=== PATIENT | female | born 1935 | race Caucasian/White ===

== ENCOUNTER 2018-01-22 11:49 | Emergency (ER) | payer BC ==
[~2018-01-22] VITALS: Ht 167.6 cm; Wt 78.5 kg
[~2018-01-22 11:49] MED LIST changes: -ADACEL; -AMLO5 PO; -DABI150C; -LOSARTAN POTAS100 MG PO
== END 2018-01-22 13:19 | disposition home or self-care (01) ==
LOC: ER 11:49
DX: I48.0 Paroxysmal atrial fibrillation (principal); I44.7 Left bundle-branch block, unspecified; Z86.19 Personal history of other infectious and parasitic diseases; Z88.1 Allergy status to other antibiotic agents; Z88.5 Allergy status to narcotic agent; Z79.899 Other long term (current) drug therapy
CPT/HCPCS: 93005; 93010; 99284

== ENCOUNTER → 2018-01-22 | Outpatient (CLI) | payer BC ==
[~2018-01-22] MED LIST: ADACEL; ALEN70 PO; AMLO5 PO; ASPI81EC PO; ATEN25 PO; CALCAVITD PO; CHOL10002 PO; CIPR500 PO; CYAN100 PO; CYAN1000 PO; DABI150C; DOXY100 PO; ERGO400 PO; FISH1000 PO; GLUC500 PO; GLUCHON PO; LOSARTAN POTAS100 MG PO; MAGOXI400 PO; METO10 PO; NAPR500 PO; OXYACE5T PO; PRAV20 PO; UBID10 PO; [UNRECOGNIZED DRUG - OTHER]
[2018-01-22 11:31] LABS: BASOPHILS ABSOLUTE AUTO 0.04 K/mm3 (0.00-0.23); BASOPHILS PERCENT AUTO 1 % (0-2); EOSINOPHILS ABSOLUTE AUTO 0.06 K/mm3 (0.00-0.68); EOSINOPHILS PERCENT AUTO 1 % (0-6); Hematocrit 41.2 % (33.0-51.0); Hemoglobin 13.9 g/dL (11.5-16.0); IMMATURE GRAN ABSOLUTE AUTO 0.04 K/mm3 (0.00-0.10); IMMATURE GRAN PERCENT AUTO 1 % (0-1); LYMPHOCYTES ABSOLUTE AUTO 1.45 K/mm3 (0.84-5.20); LYMPHOCYTES PERCENT AUTO 22 % (21-46); MONOCYTES ABSOLUTE AUTO 0.79 K/mm3 (0.16-1.47); MONOCYTES PERCENT AUTO 12 % (4-13); Mean Corpuscular HGB 31.6 pg (26.0-34.0); Mean Corpuscular HGB Conc 33.7 g/dL (31.5-36.5); Mean Corpuscular Volume 94 fL (80-100); NEUTROPHILS ABSOLUTE AUTO 4.15 K/mm3 (1.96-9.15); NEUTROPHILS PERCENT AUTO 64 % (41-73); Platelet Count 311 K/mm3 (150-400); RDW Coefficient Variation 13.5 % (11.7-14.2); RDW Standard Deviation 46.3 fL (35.1-46.3); White Blood Cell Count 6.53 K/mm3 (4.00-11.30)
[2018-01-22 11:53] LABS: Alanine Aminotransfer (ALT/SGP 19 U/L (12-78); Albumin, Blood 3.7 g/dL (3.4-5.0); Albumin/Globulin Ratio 0.9 (0.8-1.8); Alk Phos 53 U/L (40-126); Anion Gap 8 mmol/L (6-16); Aspartate Aminotrans (AST/SGOT 17 U/L (12-37); Bilirubin, Total 0.5 mg/dL (0.1-1.0); Blood Urea Nitrogen 13 mg/dL (8-24); Bun/Creatinine Ratio 21.7 (12.0-20.0); CO2, Blood 27 mmol/L (21-32); CPK Creatine Kinase 65 U/L (26-192); Calcium, Blood 9.5 mg/dL (8.5-10.1); Chloride, Blood 103 mmol/L (98-108); Glomerular Filtration Rate >60 (60-); Glucose, Blood 114 mg/dL (70-99); Sodium, Blood 138 mmol/L (136-145); Thyroid Stimulating Hormone 2.713 uIU/mL (0.360-4.800); Total Protein, Blood 7.7 g/dL (6.4-8.2)
[2018-01-22 11:56] LABS: Troponin I <0.017 ng/mL (0.000-0.040)
== END ==
LOC: LAB EV 11:26
PROVIDERS: General Practice
DX: R07.9 Chest pain, unspecified (principal)
CPT/HCPCS: 80053; 82550; 84443; 84484; 85025

== ENCOUNTER 2018-05-15 18:37 | Emergency (ER) | payer MEDICARE, BC ==
[~2018-05-15] VITALS: Ht 167.6 cm; Wt 77.1 kg
[2018-05-15] MEDS ORDERED: ADACEL (19:01)
[2018-05-15] MEDS ORDERED: DABI150C (19:01)
[2018-05-15] MEDS ORDERED: ALEN70 PO (19:02)
[2018-05-15] MEDS ORDERED: AMLO5 PO (19:02)
[2018-05-15] MEDS ORDERED: LOSARTAN POTAS100 MG PO (19:02)
[2018-05-15 19:09] LABS: BASOPHILS ABSOLUTE AUTO 0.05 K/mm3 (0.00-0.23); BASOPHILS PERCENT AUTO 1 % (0-2); EOSINOPHILS ABSOLUTE AUTO 0.07 K/mm3 (0.00-0.68); EOSINOPHILS PERCENT AUTO 1 % (0-6); Hemoglobin 14.1 g/dL (11.5-16.0); IMMATURE GRAN ABSOLUTE AUTO 0.03 K/mm3 (0.00-0.10); IMMATURE GRAN PERCENT AUTO 0 % (0-1); LYMPHOCYTES PERCENT AUTO 33 % (21-46); MONOCYTES ABSOLUTE AUTO 1.01 K/mm3 (0.16-1.47); MONOCYTES PERCENT AUTO 12 % (4-13); Mean Corpuscular HGB 30.8 pg (26.0-34.0); Mean Corpuscular HGB Conc 32.8 g/dL (31.5-36.5); Mean Corpuscular Volume 94 fL (80-100); Mean Platelet Volume 9.2 fL (9.1-12.4); NEUTROPHILS ABSOLUTE AUTO 4.45 K/mm3 (1.96-9.15); NEUTROPHILS PERCENT AUTO 54 % (41-73); Platelet Count 289 K/mm3 (150-400); RDW Coefficient Variation 12.8 % (11.7-14.2); RDW Standard Deviation 44.1 fL (35.1-46.3); Red Blood Cell Count 4.58 M/mm3 (3.80-5.20); White Blood Cell Count 8.31 K/mm3 (4.00-11.30)
[2018-05-15 20:12] LABS: Alanine Aminotransfer (ALT/SGP 17 U/L (12-78); Albumin, Blood 3.6 g/dL (3.4-5.0); Alk Phos 45 U/L (50-136); Anion Gap 7 mmol/L (6-16); Aspartate Aminotrans (AST/SGOT 21 U/L (12-37); Bilirubin, Total 0.3 mg/dL (0.1-1.0); Blood Urea Nitrogen 19 mg/dL (8-24); Bun/Creatinine Ratio 29.9 (12.0-20.0); CO2, Blood 24 mmol/L (21-32); Calcium, Blood 9.2 mg/dL (8.5-10.1); Chloride, Blood 106 mmol/L (98-108); Creatinine, Blood 0.64 mg/dL (0.40-1.00); Globulin, Blood 3.7 g/dL (2.2-4.0); Glomerular Filtration Rate >60 (60-); Glucose, Blood 116 mg/dL (70-99); Potassium, Blood 3.9 mmol/L (3.5-5.5); Sodium, Blood 137 mmol/L (136-145); Total Protein, Blood 7.3 g/dL (6.4-8.2); Troponin I <0.015 ng/mL (0.000-0.040)
== END 2018-05-15 23:25 | disposition home or self-care (01) ==
LOC: ER 18:37
PROVIDERS: Emergency Medicine
DX: I48.91 Unspecified atrial fibrillation (principal); I48.92 Unspecified atrial flutter; I10 Essential (primary) hypertension; E78.00 Pure hypercholesterolemia, unspecified; Z79.899 Other long term (current) drug therapy
CPT/HCPCS: 36415; 80053; 83735; 84443; 84484; 85025; 92960; 93005; 93010; 96365; 96375; 99285; J3475; J7030

== ENCOUNTER → 2019-01-22 | Outpatient (CLI) | payer BC ==
[~2019-01-22] MED LIST changes: +ADACEL; +AMLO5 PO; +DABI150C; +LOSARTAN POTAS100 MG PO
[2019-01-22 14:23] LABS: BASOPHILS ABSOLUTE AUTO 0.01 K/mm3 (0.00-0.23); BASOPHILS PERCENT AUTO 0 % (0-2); EOSINOPHILS PERCENT AUTO 0 % (0-6); Hematocrit 42.4 % (33.0-51.0); Hemoglobin 14.6 g/dL (11.5-16.0); Mean Corpuscular HGB 32.4 pg (26.0-34.0); Mean Corpuscular HGB Conc 34.4 g/dL (31.5-36.5); Mean Corpuscular Volume 94 fL (80-100); Mean Platelet Volume 8.1 fL (9.1-12.4); Platelet Count 274 K/mm3 (150-400); RDW Coefficient Variation 12.7 % (11.7-14.2); RDW Standard Deviation 43.8 fL (35.1-46.3); Red Blood Cell Count 4.51 M/mm3 (3.80-5.20); White Blood Cell Count 8.11 K/mm3 (4.00-11.30)
[2019-01-22 14:28] LABS: Anion Gap 11 mmol/L (6-16); Blood Urea Nitrogen 10 mg/dL (8-24); Bun/Creatinine Ratio 13.7 (12.0-20.0); CO2, Blood 25 mmol/L (21-32); Calcium, Blood 9.5 mg/dL (8.5-10.1); Chloride, Blood 92 mmol/L (98-108); Creatinine, Blood 0.73 mg/dL (0.40-1.00); Glomerular Filtration Rate >60 (60-); Glucose, Blood 133 mg/dL (70-99); Potassium, Blood 4.3 mmol/L (3.5-5.5); Sodium, Blood 128 mmol/L (136-145)
[2019-01-22 14:37] LABS: IMMATURE GRAN ABSOLUTE AUTO 0.04 K/mm3 (0.00-0.10); IMMATURE GRAN PERCENT AUTO 1 % (0-1); LYMPHOCYTES ABSOLUTE AUTO 1.09 K/mm3 (0.84-5.20); LYMPHOCYTES PERCENT AUTO 13 % (21-46); MONOCYTES ABSOLUTE AUTO 0.46 K/mm3 (0.16-1.47); MONOCYTES PERCENT AUTO 6 % (4-13); NEUTROPHILS ABSOLUTE AUTO 6.51 K/mm3 (1.96-9.15); NEUTROPHILS PERCENT AUTO 80 % (41-73)
== END | disposition home or self-care (01) ==
LOC: LAB EV 14:18 → LAB SHORT 14:18
PROVIDERS: Physician Assistant Surgical
DX: R05 Cough (principal)
CPT/HCPCS: 80048; 83880; 85025

== ENCOUNTER 2019-10-12 15:11 | Emergency (ER) | payer BC ==
[~2019-10-12] VITALS: Ht 167.6 cm; Wt 77.1 kg
== END 2019-10-12 17:16 | disposition home or self-care (01) ==
LOC: ER 15:11
DX: I48.91 Unspecified atrial fibrillation (principal); Z86.73 Personal history of transient ischemic attack (TIA), and cerebral infarction without residual deficits; Z79.01 Long term (current) use of anticoagulants; Z88.1 Allergy status to other antibiotic agents; Z88.5 Allergy status to narcotic agent; Z79.899 Other long term (current) drug therapy
CPT/HCPCS: 36415; 71045; 92960; 99285-25; J2704

== ENCOUNTER 2019-10-14 10:38 | Inpatient (IN) | payer MEDICARE, BC ==
[~2019-10-14] VITALS: Ht 167.6 cm; Wt 81.1 kg
[2019-10-14 11:33] LABS: BASOPHILS ABSOLUTE AUTO 0.04 K/mm3 (0.00-0.23); BASOPHILS PERCENT AUTO 0 % (0-2); EOSINOPHILS ABSOLUTE AUTO 0.05 K/mm3 (0.00-0.68); EOSINOPHILS PERCENT AUTO 1 % (0-6); Hematocrit 40.1 % (33.0-51.0); Hemoglobin 13.2 g/dL (11.5-16.0); IMMATURE GRAN ABSOLUTE AUTO 0.03 K/mm3 (0.00-0.10); IMMATURE GRAN PERCENT AUTO 0 % (0-1); LYMPHOCYTES ABSOLUTE AUTO 1.02 K/mm3 (0.84-5.20); LYMPHOCYTES PERCENT AUTO 11 % (21-46); MONOCYTES ABSOLUTE AUTO 1.22 K/mm3 (0.16-1.47); MONOCYTES PERCENT AUTO 13 % (4-13); Mean Corpuscular HGB 31.4 pg (26.0-34.0); Mean Corpuscular HGB Conc 32.9 g/dL (31.5-36.5); Mean Corpuscular Volume 96 fL (80-100); Mean Platelet Volume 8.9 fL (9.1-12.4); NEUTROPHILS ABSOLUTE AUTO 6.79 K/mm3 (1.96-9.15); NEUTROPHILS PERCENT AUTO 74 % (41-73); Platelet Count 314 K/mm3 (150-400); RDW Coefficient Variation 12.9 % (11.7-14.2); RDW Standard Deviation 45.5 fL (35.1-46.3); White Blood Cell Count 9.15 K/mm3 (4.00-11.30)
[2019-10-14 11:54] LABS: Alanine Aminotransfer (ALT/SGP 22 U/L (12-78); Albumin, Blood 3.4 g/dL (3.4-5.0); Albumin/Globulin Ratio 0.8 (0.8-1.8); Alk Phos 69 U/L (50-136); Anion Gap 9 mmol/L (6-16); Aspartate Aminotrans (AST/SGOT 17 U/L (12-37); Bilirubin, Total 0.6 mg/dL (0.1-1.0); Blood Urea Nitrogen 12 mg/dL (8-24); Bun/Creatinine Ratio 19.9 (12.0-20.0); CO2, Blood 22 mmol/L (21-32); Calcium, Blood 9.2 mg/dL (8.5-10.1); Chloride, Blood 105 mmol/L (98-108); Globulin, Blood 4.4 g/dL (2.2-4.0); Glomerular Filtration Rate >60 (60-); Glucose, Blood 126 mg/dL (70-99); Sodium, Blood 136 mmol/L (136-145); Total Protein, Blood 7.8 g/dL (6.4-8.2)
[2019-10-14] MEDS ORDERED: DABI150C PO (12:07)
[2019-10-14] MEDS ORDERED: METO25 PO (12:07)
[2019-10-14] MEDS ORDERED: AMLO10 PO (12:09)
[2019-10-14] MEDS ORDERED: ATOR40TA PO (12:09)
[2019-10-14] MEDS ORDERED: ALEN70 PO (13:31)
--- NOTE | 2019-10-14 16:00 | NUR ---
INITIAL ASSESMENT PT ADMITTED FROM ED FOR AF RVR WHICH WAS CONTROLLED TO THE 110S AND TRANSFERED TO PCU3 VIA STRETCHER AND AMBULATED TO BED AND BATHROOM WITHOUT DIFFICULTY, VERTIGO OR DIZINESS. AF IN THE 110-170S WHEN AMBULATING, MD ADVISED. NO ORDERS RECEIVED. PALP PULSES, NO EDEMA, GOOD CAP REFILL, NO C/O CP OR SOB. RA SATS IN THE HIGH 90S. SBP STABLE. SL. CARDIAC DIET WITH GOOD PO INTAKE. UO ADEQUATE CLEAR AND YELLOW. SKIN INTACT. WILL CONT TO MONITOR
--- NOTE | 2019-10-14 19:30 | NUR ---
OPENING NOTE RECEIVED REPORT FROM MONIE MARTINEZ AND ASSUMED PT CARE. PT IS RESTING IN BED, C/O FEELING SHORTNESS OF BREATH. TELE IS SHOWING AFIB UP TO 170'S WITH ACTIVITY AND 130'S AT REST. OTHER VITAL SIGNS STABLE. DR. MÁRQUEZ AT THE BEDSIDE FOR ADMISSION WITH PLAN TO START A CARDIZEM GTT. WILL INITIATE ADMIT ORDERS WHEN ENTERED AND WILL MONITOR CLOSELY FOR DECOMPENSATION.
[2019-10-15 05:38] LABS: BASOPHILS ABSOLUTE AUTO 0.06 K/mm3 (0.00-0.23); BASOPHILS PERCENT AUTO 1 % (0-2); EOSINOPHILS ABSOLUTE AUTO 0.21 K/mm3 (0.00-0.68); EOSINOPHILS PERCENT AUTO 3 % (0-6); Hematocrit 38.9 % (33.0-51.0); Hemoglobin 12.5 g/dL (11.5-16.0); IMMATURE GRAN ABSOLUTE AUTO 0.03 K/mm3 (0.00-0.10); IMMATURE GRAN PERCENT AUTO 0 % (0-1); LYMPHOCYTES ABSOLUTE AUTO 1.74 K/mm3 (0.84-5.20); LYMPHOCYTES PERCENT AUTO 24 % (21-46); MONOCYTES ABSOLUTE AUTO 1.17 K/mm3 (0.16-1.47); MONOCYTES PERCENT AUTO 16 % (4-13); Mean Corpuscular HGB 31.3 pg (26.0-34.0); Mean Corpuscular HGB Conc 32.1 g/dL (31.5-36.5); Mean Corpuscular Volume 97 fL (80-100); Mean Platelet Volume 9.6 fL (9.1-12.4); NEUTROPHILS ABSOLUTE AUTO 4.04 K/mm3 (1.96-9.15); NEUTROPHILS PERCENT AUTO 56 % (41-73); Platelet Count 280 K/mm3 (150-400); RDW Coefficient Variation 12.9 % (11.7-14.2); RDW Standard Deviation 46.1 fL (35.1-46.3); White Blood Cell Count 7.25 K/mm3 (4.00-11.30)
[2019-10-15 05:59] LABS: Alanine Aminotransfer (ALT/SGP 18 U/L (12-78); Albumin/Globulin Ratio 0.8 (0.8-1.8); Alk Phos 62 U/L (50-136); Anion Gap 8 mmol/L (6-16); Aspartate Aminotrans (AST/SGOT 22 U/L (12-37); Bilirubin, Total 0.8 mg/dL (0.1-1.0); Blood Urea Nitrogen 11 mg/dL (8-24); Bun/Creatinine Ratio 20.7 (12.0-20.0); CO2, Blood 21 mmol/L (21-32); Calcium, Blood 8.9 mg/dL (8.5-10.1); Chloride, Blood 106 mmol/L (98-108); Creatinine, Blood 0.53 mg/dL (0.40-1.00); Glomerular Filtration Rate >60 (60-); Glucose, Blood 100 mg/dL (70-99); Potassium, Blood 3.8 mmol/L (3.5-5.5); Sodium, Blood 135 mmol/L (136-145)
[2019-10-15 06:03] LABS: Troponin I <0.015 ng/mL (0.000-0.040)
--- NOTE | 2019-10-15 06:24 | NUR ---
SHIFT SUMMARY PT HAS NOT RESTED WELL THROUGH THE NIGHT, STATES "I'M JUST NOT ABLE TO GET COMFORTABLE BECAUSE I USUALLY SLEEP ON MY SIDE AND I DON'T FEEL LIKE I CAN DO THAT WITH MY BREATHING". OVERALL SOME IMPROVEMENT R/T BETTER HR CONTROL WITH CARDIZEM GTT RUNNING AT 5 MG/HR FOR HR 90'S AT REST AND UP TO 130'S WITH ACTIVITY. PT STATES "I FEEL BETTER BUT I'M REALLY DISAPPOINTED THAT IT DIDN'T CHANGE TO A NORMAL RHYTHM". DENIES PAIN OR OTHER COMPLAINTS THIS MORNING, APPEARS RELAXED AND COMFORTABLE. VSS, SEE ASSESSMENT FOR DETAILS. LUNG SOUNDS ARE CLEAR T/O AND SATS ARE >94% ON ROOM AIR SO PROVIDED EDUCATION R/T RAPID HR AND SENSATION OF SHORTNESS OF BREATH. NO ACUTE CONCERNS THIS AM, PLAN FOR CARDIOLOGY CONSULT TODAY. WILL PROVIDE BEDSIDE REPORT TO ONCOMING RN.
--- NOTE | 2019-10-15 09:09 | NUR ---
PULSE RATE 120-130 WITH PEAKS OF 150, DISCUSSED WITH CN INCREASED TO 10 WILL CONTINUE MONITOR AND TREAT
--- NOTE | 2019-10-15 19:21 | NUR ---
a+o, rm air, drip running with no s/sx of infection or infiltration at site, call light in reach, able to make needs known, afib heart rate increasing, waiting on new medication, bsr shared with pt and day shift denied pain at that time
--- NOTE | 2019-10-16 01:30 | NUR ---
CARDIZEM D/C'D AFTER PT CONVERTED TO NSR, MAINTAINED RHYTHM FOR 1HR IN THE 70'S/80'S. HR THEN DROPPED INTO 50'S AND SUSTAINED, BUT PT IS ASYMPTOMATIC AT THIS TIME. PT TOLERATED WELL. DENIES FURTHER NEEDS AT THIS TIME. SAFETY MEASURES IN PLACE. WILL CONTINUE TO MONITOR.
--- NOTE | 2019-10-16 05:55 | NUR ---
SHIFT SUMMARY LYING IN SEMI FOWLERS WITH EYES CLOSED. HAS RESTED WELL THIS SHIFT. ZACK WAS D/C'S WHEN PT HAD MAINTAINED CONVERSIO FOR AN HOUR, AND HR BEGAN TO DECELL INTO THE 50'S. STATES THAT SHE FEELS MUCH BETTER AND IS VERY HAPPY THAT HER HEART HAS CONVERTED. DENIES PAIN, DISCOMFORT, OR FURTHER NEEDS AT THIS TIME. WILL GIVE HAND OFF TO ONCOMING SHIFT USING SBAR.
[2019-10-16] MEDS ORDERED: ACET325 PO (12:22)
[2019-10-16] MEDS ORDERED: SOTO80 PO (12:23)
--- NOTE | 2019-10-16 16:43 | NUR ---
CALLED DR MÁRQUEZ PT C/O INCREASED SOB AT REST. NOTIFIED THAT PT'S LUNGS ARE CLEAR TO ASCULATION, SINUS RHYTHM 70'S AND VITALS STABLE. PT REMAINS ON ROOM AIR. ORDERS RECEIVED FOR XRAY. WILL CONTINUE TO MONITOR AND UPDATE PT.
--- NOTE | 2019-10-16 19:23 | NUR ---
SHIFT SUMMARY PT HAS REMAINED IN SINUS RHYTHM THROUGHOUT SHIFT. THIS AFTERNOON PT C/O INCREASED SOB WHILE AT REST. NOTIFIED DR MÁRQUEZ AND ORDERS RECEIVED. PT FELT THAT THE SOB HAD IMPROVED THIS EVENING. PT HAS BEEN UP IN ROOM WITH SBA.
--- NOTE | 2019-10-16 22:11 | NUR ---
START OF SHIFT: REPORT FORM LARON MARTINEZ. PT UP IN ROOM PLEASANT INDEPENDENTLY WITHOUT ANY DIFFICULTY OR COMPLAINTS. VSS. QTc 0.480, Qt 0.384 AT 2118. CALL LIGHT WITHIN REACH.
--- NOTE | 2019-10-17 06:10 | NUR ---
UPDATE: PT UP THIS AM STATING SHE IS FEELING SO MUCH BETTER AND HAS HAD THE BEST SLEEP. VSS. PT CONTINUING UP INDEPENDENT IN ROOM WITHOUT DIFFICULTY. CALL LIGHT WITHIN REACH.
[2019-10-17 08:29] LABS: BASOPHILS ABSOLUTE AUTO 0.04 K/mm3 (0.00-0.23); BASOPHILS PERCENT AUTO 1 % (0-2); EOSINOPHILS PERCENT AUTO 3 % (0-6); Hemoglobin 13.3 g/dL (11.5-16.0); IMMATURE GRAN ABSOLUTE AUTO 0.03 K/mm3 (0.00-0.10); IMMATURE GRAN PERCENT AUTO 1 % (0-1); LYMPHOCYTES ABSOLUTE AUTO 1.09 K/mm3 (0.84-5.20); LYMPHOCYTES PERCENT AUTO 17 % (21-46); MONOCYTES ABSOLUTE AUTO 1.01 K/mm3 (0.16-1.47); MONOCYTES PERCENT AUTO 16 % (4-13); Mean Corpuscular HGB Conc 32.4 g/dL (31.5-36.5); Mean Corpuscular Volume 96 fL (80-100); Mean Platelet Volume 8.6 fL (9.1-12.4); NEUTROPHILS ABSOLUTE AUTO 4.15 K/mm3 (1.96-9.15); NEUTROPHILS PERCENT AUTO 64 % (41-73); Platelet Count 341 K/mm3 (150-400); RDW Coefficient Variation 12.9 % (11.7-14.2); RDW Standard Deviation 45.2 fL (35.1-46.3); Red Blood Cell Count 4.29 M/mm3 (3.80-5.20); White Blood Cell Count 6.52 K/mm3 (4.00-11.30)
[2019-10-17 09:13] LABS: Anion Gap 7 mmol/L (6-16); Blood Urea Nitrogen 12 mg/dL (8-24); Bun/Creatinine Ratio 24.1 (12.0-20.0); CO2, Blood 21 mmol/L (21-32); Calcium, Blood 9.2 mg/dL (8.5-10.1); Chloride, Blood 104 mmol/L (98-108); Glomerular Filtration Rate >60 (60-); Glucose, Blood 145 mg/dL (70-99); Potassium, Blood 4.3 mmol/L (3.5-5.5); Sodium, Blood 132 mmol/L (136-145)
--- NOTE | 2019-10-17 14:23 | NUR ---
PT PROVIDED WITH HER HOME MEDS AND ALL BELONGINGS. PT EDUCATED ABOUT NEW MEDICATIONS AND SIDE EFFECTS, PT EDUCATED THAT RX WAS CALLED INTO [facility]. PT EXPRESSED UNDERSTANDIG OF DC EDUCATION, DENIES FURTHER NEEDS OR QUESTIONS. PT TAKEN OUT VIA W/C VIA PCT
== END 2019-10-17 14:22 | disposition home or self-care (01) | DRG 310 ==
LOC: ER 10:38 → PCU 14:48
PROVIDERS: Emergency Medicine; Family Medicine; ADMIT Internal Medicine Endocrinology, Diabetes & Metabolism
DX: I48.0 Paroxysmal atrial fibrillation (principal); I44.7 Left bundle-branch block, unspecified; E78.5 Hyperlipidemia, unspecified; B18.2 Chronic viral hepatitis C; F41.9 Anxiety disorder, unspecified; Z79.01 Long term (current) use of anticoagulants; Z86.73 Personal history of transient ischemic attack (TIA), and cerebral infarction without residual deficits
CPT/HCPCS: 36415; 71046; 80048; 80053; 83735; 83880; 84484; 85025; 93005; 93010; 94762; 96374; 96375; 99285-25; A9270; J1940

== ENCOUNTER 2019-10-19 18:16 | Emergency (ER) | payer BC ==
[~2019-10-19] VITALS: Ht 167.6 cm; Wt 80.3 kg
[~2019-10-19 18:16] MED LIST changes: +ACET325 PO; +AMLO10 PO; +ATOR40TA PO; +DABI150C PO; +METO25 PO; +SOTO80 PO
[2019-10-19 19:05] LABS: BASOPHILS ABSOLUTE AUTO 0.08 K/mm3 (0.00-0.23); BASOPHILS PERCENT AUTO 1 % (0-2); EOSINOPHILS ABSOLUTE AUTO 0.12 K/mm3 (0.00-0.68); EOSINOPHILS PERCENT AUTO 2 % (0-6); Hematocrit 43.3 % (33.0-51.0); Hemoglobin 14.3 g/dL (11.5-16.0); IMMATURE GRAN ABSOLUTE AUTO 0.06 K/mm3 (0.00-0.10); IMMATURE GRAN PERCENT AUTO 1 % (0-1); LYMPHOCYTES ABSOLUTE AUTO 1.77 K/mm3 (0.84-5.20); LYMPHOCYTES PERCENT AUTO 22 % (21-46); MONOCYTES ABSOLUTE AUTO 0.93 K/mm3 (0.16-1.47); MONOCYTES PERCENT AUTO 11 % (4-13); Mean Corpuscular HGB 31.6 pg (26.0-34.0); Mean Corpuscular Volume 96 fL (80-100); Mean Platelet Volume 8.4 fL (9.1-12.4); NEUTROPHILS ABSOLUTE AUTO 5.27 K/mm3 (1.96-9.15); NEUTROPHILS PERCENT AUTO 64 % (41-73); Platelet Count 427 K/mm3 (150-400); RDW Coefficient Variation 12.6 % (11.7-14.2); RDW Standard Deviation 44.7 fL (35.1-46.3); Red Blood Cell Count 4.53 M/mm3 (3.80-5.20); White Blood Cell Count 8.23 K/mm3 (4.00-11.30)
[2019-10-19 19:21] LABS: Alanine Aminotransfer (ALT/SGP 23 U/L (12-78); Albumin, Blood 3.7 g/dL (3.4-5.0); Albumin/Globulin Ratio 0.8 (0.8-1.8); Alk Phos 71 U/L (50-136); Anion Gap 6 mmol/L (6-16); Aspartate Aminotrans (AST/SGOT 20 U/L (12-37); Bilirubin, Total 0.3 mg/dL (0.1-1.0); Blood Urea Nitrogen 16 mg/dL (8-24); Bun/Creatinine Ratio 28.1 (12.0-20.0); CO2, Blood 22 mmol/L (21-32); Calcium, Blood 9.5 mg/dL (8.5-10.1); Chloride, Blood 101 mmol/L (98-108); Creatinine, Blood 0.57 mg/dL (0.40-1.00); Globulin, Blood 4.6 g/dL (2.2-4.0); Glomerular Filtration Rate >60 (60-); Glucose, Blood 132 mg/dL (70-99); Potassium, Blood 4.3 mmol/L (3.5-5.5); Sodium, Blood 129 mmol/L (136-145); Total Protein, Blood 8.3 g/dL (6.4-8.2); Troponin I <0.015 ng/mL (0.000-0.040)
== END 2019-10-19 21:30 | disposition home or self-care (01) ==
LOC: ER 18:16
PROVIDERS: Physician Assistant
DX: I48.91 Unspecified atrial fibrillation (principal); J81.1 Chronic pulmonary edema; E78.5 Hyperlipidemia, unspecified; Z88.1 Allergy status to other antibiotic agents; Z88.5 Allergy status to narcotic agent; Z79.899 Other long term (current) drug therapy; Z86.73 Personal history of transient ischemic attack (TIA), and cerebral infarction without residual deficits
CPT/HCPCS: 36415; 71046; 80053; 84484; 85025; 93005; 93010; 96374; 99285-25

== ENCOUNTER → 2020-07-10 | Outpatient (CLI) | payer BC ==
[2020-07-11 21:27] LABS: Campylobacter Sp Not Detected (NOT DETECT)
[2020-07-11 21:28] LABS: Adenovirus F 40/41 Not Detected (NOT DETECT); Astrovirus Not Detected (NOT DETECT); Cryptosporidium Not Detected (NOT DETECT); Cyclospora Cayetanensis Not Detected (NOT DETECT); E. Coli O157 Not Detected (NOT DETECT); Entamoeba Histolytica Not Detected (NOT DETECT); Enteroaggregative E. coli-EAEC Not Detected (NOT DETECT); Enteropathogenic E. coli-EPEC Not Detected (NOT DETECT); Enterotoxigenic E. coli-ETEC Not Detected (NOT DETECT); Giardia Lamblia Not Detected (NOT DETECT); Norovirus GI/GII Not Detected (NOT DETECT); Plesiomonas Shigelloides Not Detected (NOT DETECT); Rotavirus A Not Detected (NOT DETECT); Salmonella Sp Not Detected (NOT DETECT); Sapovirus Not Detected (NOT DETECT); Shiga Toxin-prod E. coli-STEC Not Detected (NOT DETECT); Shigella/Enteroin E. coli-EIEC Not Detected (NOT DETECT); Vibrio Cholerae Not Detected (NOT DETECT); Vibrio Sp Not Detected (NOT DETECT); Yersinia Enterocolitica Not Detected (NOT DETECT)
== END | disposition home or self-care (01) ==
LOC: LAB SHORT 19:00 → LAB 19:00
PROVIDERS: Internal Medicine
DX: R19.7 Diarrhea, unspecified (principal)
CPT/HCPCS: 0097U

== ENCOUNTER 2021-10-14 10:20 | Inpatient (IN) | payer MEDICARE, BC ==
[~2021-10-14] VITALS: Ht 167.6 cm; Wt 91.4 kg
[~2021-10-14 10:20] MED LIST changes: +DILTIAZEM 24HR240 M3 PO; +METO100ER PO
[2021-10-14 10:49] LABS: BASOPHILS ABSOLUTE AUTO 0.03 K/mm3 (0.00-0.23); BASOPHILS PERCENT AUTO 0 % (0-2); EOSINOPHILS PERCENT AUTO 0 % (0-6); Hematocrit 39.9 % (33.0-51.0); IMMATURE GRAN ABSOLUTE AUTO 0.07 K/mm3 (0.00-0.10); IMMATURE GRAN PERCENT AUTO 0 % (0-1); LYMPHOCYTES ABSOLUTE AUTO 0.38 K/mm3 (0.84-5.20); LYMPHOCYTES PERCENT AUTO 2 % (21-46); MONOCYTES ABSOLUTE AUTO 1.48 K/mm3 (0.16-1.47); MONOCYTES PERCENT AUTO 9 % (4-13); Mean Corpuscular HGB 31.3 pg (26.0-34.0); Mean Corpuscular HGB Conc 32.6 g/dL (31.5-36.5); Mean Corpuscular Volume 96 fL (80-100); Mean Platelet Volume 8.7 fL (9.1-12.4); NEUTROPHILS PERCENT AUTO 88 % (41-73); Platelet Count 301 K/mm3 (150-400); RDW Coefficient Variation 13.2 % (11.7-14.2); RDW Standard Deviation 46.8 fL (35.1-46.3); Red Blood Cell Count 4.16 M/mm3 (3.80-5.20); White Blood Cell Count 16.16 K/mm3 (4.00-11.30)
[2021-10-14 11:17] LABS: Alanine Aminotransfer (ALT/SGP 25 U/L (12-78); Albumin/Globulin Ratio 0.7 (0.8-1.8); Alk Phos 82 U/L (50-136); Anion Gap 6 mmol/L (6-16); Aspartate Aminotrans (AST/SGOT 16 U/L (12-37); Bilirubin, Total 0.9 mg/dL (0.1-1.0); Blood Urea Nitrogen 13 mg/dL (8-24); Bun/Creatinine Ratio 23.4 (12.0-20.0); CO2, Blood 25 mmol/L (21-32); Chloride, Blood 97 mmol/L (98-108); Creatinine, Blood 0.56 mg/dL (0.40-1.00); Globulin, Blood 4.2 g/dL (2.2-4.0); Glomerular Filtration Rate >60 (60-); Glucose, Blood 147 mg/dL (70-99); Potassium, Blood 4.3 mmol/L (3.5-5.5); Sodium, Blood 128 mmol/L (136-145); Total Protein, Blood 7.2 g/dL (6.4-8.2)
[2021-10-14] MEDS ORDERED: TRAM50 PO (13:30)
[2021-10-14] MEDS ORDERED: ONDA4 (13:31)
[2021-10-14 21:02] LABS: Source, Urine Clean Catch
[2021-10-14 21:06] LABS: Bilirubin, Urine Neg (Neg); Blood, Urine 3+ (Neg); Glucose Qualitative, Urine Neg (Neg); Ketones, Urine 1+ (Neg); Leukocyte Esterase, Urine 1+ (Neg); Nitrite, Urine Neg (Neg); Protein, Urine 1+ (Neg); Urobilinogen, Urine NORM (Normal)
[2021-10-14 21:39] LABS: Appearance, Urine Hazy (Clear); Color, Urine Yellow (P-Yellow)
[2021-10-14 21:42] LABS: Amorphous Mod (0-Heavy); Bacteria Mod /hpf; Squamous Epithelial Cells Mod /hpf (Few)
[2021-10-15 04:33] LABS: BASOPHILS ABSOLUTE AUTO 0.03 K/mm3 (0.00-0.23); BASOPHILS PERCENT AUTO 0 % (0-2); EOSINOPHILS ABSOLUTE AUTO 0.02 K/mm3 (0.00-0.68); EOSINOPHILS PERCENT AUTO 0 % (0-6); Hematocrit 40.8 % (33.0-51.0); Hemoglobin 13.5 g/dL (11.5-16.0); IMMATURE GRAN ABSOLUTE AUTO 0.06 K/mm3 (0.00-0.10); IMMATURE GRAN PERCENT AUTO 1 % (0-1); LYMPHOCYTES ABSOLUTE AUTO 0.74 K/mm3 (0.84-5.20); LYMPHOCYTES PERCENT AUTO 6 % (21-46); MONOCYTES ABSOLUTE AUTO 1.74 K/mm3 (0.16-1.47); MONOCYTES PERCENT AUTO 15 % (4-13); Mean Corpuscular HGB 31.6 pg (26.0-34.0); Mean Corpuscular HGB Conc 33.1 g/dL (31.5-36.5); Mean Corpuscular Volume 96 fL (80-100); Mean Platelet Volume 9.3 fL (9.1-12.4); NEUTROPHILS ABSOLUTE AUTO 9.06 K/mm3 (1.96-9.15); NEUTROPHILS PERCENT AUTO 78 % (41-73); Platelet Count 268 K/mm3 (150-400); RDW Coefficient Variation 13.3 % (11.7-14.2); RDW Standard Deviation 46.8 fL (35.1-46.3); Red Blood Cell Count 4.27 M/mm3 (3.80-5.20); White Blood Cell Count 11.65 K/mm3 (4.00-11.30)
[2021-10-15 04:53] LABS: Alanine Aminotransfer (ALT/SGP 21 U/L (12-78); Albumin/Globulin Ratio 0.7 (0.8-1.8); Alk Phos 82 U/L (50-136); Anion Gap 9 mmol/L (6-16); Aspartate Aminotrans (AST/SGOT 14 U/L (12-37); Bilirubin, Total 0.8 mg/dL (0.1-1.0); Blood Urea Nitrogen 12 mg/dL (8-24); Bun/Creatinine Ratio 26.1 (12.0-20.0); CO2, Blood 24 mmol/L (21-32); Calcium, Blood 9.4 mg/dL (8.5-10.1); Chloride, Blood 97 mmol/L (98-108); Creatinine, Blood 0.46 mg/dL (0.40-1.00); Globulin, Blood 4.3 g/dL (2.2-4.0); Glomerular Filtration Rate >60 (60-); Glucose, Blood 113 mg/dL (70-99); Potassium, Blood 3.9 mmol/L (3.5-5.5); Sodium, Blood 130 mmol/L (136-145); Total Protein, Blood 7.3 g/dL (6.4-8.2)
--- NOTE | 2021-10-15 05:39 | NUR ---
SOILED LINEN DISTRIBUTOR SUMMARY PT IS AXO X4 THIS SHIFT. PT ARRIVED TO THE UNIT ON THE CARDIZEM GTT AT 5MG/HR W A HR 90-125. BP WNL AND STABLE THIS SHIFT. O2 SATS >90% ON 2L VIA NC. PT AFEBRILE THIS SHIFT. CARDIZEM GTT TURNED OFF AT 0400 THIS AM FOR A HR SUSTAINED IN THE 80'S HOWEVER HER HR BEGAN TO CLIMB SO ORDER TO GIVE HER THE METOPOROL XL EARLY THIS AM. WILL REPORT TO ONCOMING RN.
--- NOTE | 2021-10-15 07:56 | NUR ---
Pt states that her pain is relieved. She is sitting up in bed, to eat breakfast right now.
--- NOTE | 2021-10-15 08:01 | NUR ---
2nd bag of IVfluids complete: discontinued at this time. She is sitting up in bed, eating.
--- NOTE | 2021-10-15 11:55 | NUR ---
Tearful, crying and saying that she hurts on her right lower back. Irritable with questions about the location and severity of pain, also irritated that vital signs were taken before administration of NOrco. She apologized afterwards. here at this time to see the patient.
--- NOTE | 2021-10-15 12:37 | NUR ---
States no relief from [place]. Given a pillow and ice pack to her right lower back, which she states feels good. is at the bedside.
--- NOTE | 2021-10-15 15:03 | NUR ---
PT states that her pain level is down to 5/10 from 10/10. sTates that the NOrco has helped, as well as the ice. asking for something for anxiety for the pt.
--- NOTE | 2021-10-15 15:05 | NUR ---
Call to Dr. Ann to request anxiety medication.
--- NOTE | 2021-10-15 15:19 | NUR ---
ICE PACK to the right lower back refreshed at this time. Dr. Ann here to see pt and her at this time.
--- NOTE | 2021-10-15 16:21 | NUR ---
Initial Assessment with [facility] Cigarette Tipper 1. Who did you speak with? Spoke with patient and spouse (spouse was visiting) 2. What is the patient's prior level of functions? Independent lives with her and daughter 3. What is the patient's current living situation? Patient lives with her and daughter. Patient has a safe and stable home with running water, heat electricity, and sewage. No barriers at this time. 4. Is the patient and/or family able to provide transportation to and from doctor's appointments and sweet pickle maker prescriptions? Yes 5. Does patient still drive? No her and daughter drives her to and from 6. POA/PCP/NOK: PCP-Dr. Mariscal 7. Discharge goals: -Patient is returning to her residence -DME: patient has a walker -Medication Management: assists with medication -Preferred Pharmacy: [facility] -Housekeeping need: and daughter helps with housekeeping needs -Able to cook for self: and daughter assists with cooking/meals 8. List barriers to discharge -SNF Placement: No -Memory Care: No -Transportation needs: No -Financial concerns: No -Drug/Alcohol treatment: No -Home Health: No -Hospice: No 9. Discharge Plan: Return to her residence 10. PCP Follow up appointment: Will be scheduled within seven calendar days of discharge.
--- NOTE | 2021-10-15 17:05 | NUR ---
left the unit.
--- NOTE | 2021-10-16 04:20 | NUR ---
SHIFT SUMMARY PT A&OX3. FOLLOWS COMMANDS, ANXIOUS. OCCASIONAL PARANOIA. PT STATES, "THE LAB PERSON WAS UNABLE TO DRAW BLOOD, I SAW NO BLOOD COME FROM HIS NEEDLE. iF THERE ARE LAB RESULTS, THEY ARE MADE UP". tHIS RN CALLED LAB AND LAB VERIFIED THEY DID, IN FACT, DRAW BLOOD AND ARE PROCESSING THE RESULTS. SP02>92% ON RA. PT WORE HOME CPAP AT [facility]. TELEMETRY READ PACED, AFIB, HR 90'S-110'S. PT UP TO BSC TO VOID MULTIPLE TIMES DURING SHIFT. ABX INFUSED PER EMAR. PT C/O OF 7/10 RIB PAIN ON RIGHT SIDE. MEDICATED PER EMAR. CALL LIGHT IN REACH.
[2021-10-16 04:40] LABS: BASOPHILS ABSOLUTE AUTO 0.04 K/mm3 (0.00-0.23); BASOPHILS PERCENT AUTO 0 % (0-2); EOSINOPHILS ABSOLUTE AUTO 0.13 K/mm3 (0.00-0.68); EOSINOPHILS PERCENT AUTO 1 % (0-6); Hematocrit 37.2 % (33.0-51.0); Hemoglobin 12.2 g/dL (11.5-16.0); IMMATURE GRAN ABSOLUTE AUTO 0.06 K/mm3 (0.00-0.10); IMMATURE GRAN PERCENT AUTO 1 % (0-1); LYMPHOCYTES ABSOLUTE AUTO 0.96 K/mm3 (0.84-5.20); LYMPHOCYTES PERCENT AUTO 10 % (21-46); MONOCYTES ABSOLUTE AUTO 1.72 K/mm3 (0.16-1.47); MONOCYTES PERCENT AUTO 18 % (4-13); Mean Corpuscular HGB 31.3 pg (26.0-34.0); Mean Corpuscular HGB Conc 32.8 g/dL (31.5-36.5); Mean Corpuscular Volume 95 fL (80-100); Mean Platelet Volume 9.2 fL (9.1-12.4); NEUTROPHILS ABSOLUTE AUTO 6.55 K/mm3 (1.96-9.15); NEUTROPHILS PERCENT AUTO 69 % (41-73); Platelet Count 286 K/mm3 (150-400); RDW Coefficient Variation 13.4 % (11.7-14.2); RDW Standard Deviation 47.5 fL (35.1-46.3); White Blood Cell Count 9.46 K/mm3 (4.00-11.30)
[2021-10-16 05:22] LABS: Anion Gap 8 mmol/L (6-16); Blood Urea Nitrogen 10 mg/dL (8-24); Bun/Creatinine Ratio 21.9 (12.0-20.0); CO2, Blood 24 mmol/L (21-32); Calcium, Blood 9.1 mg/dL (8.5-10.1); Chloride, Blood 101 mmol/L (98-108); Creatinine, Blood 0.46 mg/dL (0.40-1.00); Glomerular Filtration Rate >60 (60-); Glucose, Blood 84 mg/dL (70-99); Sodium, Blood 133 mmol/L (136-145)
--- NOTE | 2021-10-16 05:54 | NUR ---
PT UPDATE PT REMAINED FOCUSED ON "THE LAB BRE THAT DIDNT DRAW BLOOD". PT BECAME INCREASINGLY ANXIOUS AND HEARTRATE INCREASED UP TO 170'S. TELEMETRY CALLED AND NOTIFIED OF SVT WITH FUSION BEATS. PRN ANXIETY MEDICATION GIVEN PER EMAR. ALSO GAVE 0900 METOPROLOL EARLY FOR HEART RATE. PT CURRENTLY RESTING IN ROOM, HR 120'S.
--- NOTE | 2021-10-16 07:47 | NUR ---
Bedside report received from Willow MARTINEZ. Pt is very anxious, upset saying that the phebotomist at 3 am did not actually draw any blood; that whatever lab results there are they are not hers. She is extremely upset about this. Heart rate noted up to 173, ranging 133-172 underlying atrial fibrillation and also showing occasionally paced beats. Blood pressure is stable, as well as other vital signs at this time. Scheduled toprol xl and cardizem were given early due to the afib with RVR. Dr. Ann was called, advised of pt situation. He came and spoke with the patient, and we are re-drawing the labs now. Chest x ray will also be done after the labs have been drawn.
[2021-10-16 08:35] LABS: Hematocrit 39.9 % (33.0-51.0); Hemoglobin 13.3 g/dL (11.5-16.0); Mean Corpuscular HGB 32.3 pg (26.0-34.0); Mean Corpuscular HGB Conc 33.3 g/dL (31.5-36.5); Mean Corpuscular Volume 97 fL (80-100); Platelet Count 301 K/mm3 (150-400); RDW Coefficient Variation 13.4 % (11.7-14.2); Red Blood Cell Count 4.12 M/mm3 (3.80-5.20)
[2021-10-16 09:03] LABS: Anion Gap 12 mmol/L (6-16); Blood Urea Nitrogen 11 mg/dL (8-24); Bun/Creatinine Ratio 19.9 (12.0-20.0); CO2, Blood 22 mmol/L (21-32); Calcium, Blood 9.4 mg/dL (8.5-10.1); Chloride, Blood 97 mmol/L (98-108); Creatinine, Blood 0.55 mg/dL (0.40-1.00); Glomerular Filtration Rate >60 (60-); Glucose, Blood 113 mg/dL (70-99); Potassium, Blood 4.6 mmol/L (3.5-5.5); Sodium, Blood 131 mmol/L (136-145)
--- NOTE | 2021-10-16 11:19 | NUR ---
Dr. Ann here again to see the patient. Possibly home with home health today. expressing questions about medications and prescriptions at discharge.
[2021-10-16] MEDS ORDERED: AZIT250 PO (12:57)
[2021-10-16] MEDS ORDERED: HYDR1TAB94 PO (12:57)
[2021-10-16] MEDS ORDERED: HYDPAM25 PO (13:01)
[2021-10-16] MEDS ORDERED: NARCAN4 M1 (13:02)
[2021-10-16] MEDS ORDERED: CEFD300 PO (13:03)
--- NOTE | 2021-10-16 13:56 | NUR ---
pt's heart rate has been 78-92 for 5 hours, paced with occasional eklutna beats noted. Vital signs are stable. She has been medicated with [place] for pain at 11:30 and sat up in the chair for lunch. Ambulatory to the bathroom with walker independently while in the room with her after discharge instructions were reviewed with both of them. Extensively reviewed the discharge medications, follow up appoinments, and strong recommendations including the use of the incentive spirometer and activity to avoid worsening pneumonia. Pt's packed the incentive spirometer in her belongings to take home. Pt has a follow up appointment with Dr. Mcwilliams on Thursday. Pt's states that Francie sees a irrigation service technician in [place], Dr. Swanson, and that he will call to make a follow up appointment for her to be seen 1-2 weeks from today. IV left forearm was discontinued, coban and gauze applied.
--- NOTE | 2021-10-16 16:55 | NUR ---
Per Dr. Zach Ann discharge appropriate for today (10/16/2021). Spoke with patient and spouse and they are aware of discharge and do not oppose. Patient's will transport to their residence. [employer] will be contacted to order a front wheeled walker to be delivered to residence. Patient has a scheduled follow up appointment with PCP. [facility] has been contacted for home health needs per doctor's request. Patient has a strong support network ( and daughter). Patient to contact PCP for if condition worsens or any question on medication management. No barriers to discharge at this time.
== END 2021-10-16 14:00 | disposition home health service (06) | DRG 308 ==
LOC: ER 10:20 → ERHOLD 13:40 → PCU 13:40
PROVIDERS: Emergency Medicine; ADMIT Family Medicine
DX: I48.91 Unspecified atrial fibrillation (principal); J18.9 Pneumonia, unspecified organism; S22.41XA Multiple fractures of ribs, right side, initial encounter for closed fracture; J90 Pleural effusion, not elsewhere classified; E87.1 Hypo-osmolality and hyponatremia; E87.6 Hypokalemia; I10 Essential (primary) hypertension; G47.33 Obstructive sleep apnea (adult) (pediatric); F41.9 Anxiety disorder, unspecified; M81.0 Age-related osteoporosis without current pathological fracture; Z96.643 Presence of artificial hip joint, bilateral; M19.90 Unspecified osteoarthritis, unspecified site; E78.5 Hyperlipidemia, unspecified; Z88.1 Allergy status to other antibiotic agents; Z28.21 Immunization not carried out because of patient refusal; Z88.5 Allergy status to narcotic agent; Z79.899 Other long term (current) drug therapy; Z86.73 Personal history of transient ischemic attack (TIA), and cerebral infarction without residual deficits; Z90.49 Acquired absence of other specified parts of digestive tract; Z95.0 Presence of cardiac pacemaker; Z98.890 Other specified postprocedural states; W19.XXXA Unspecified fall, initial encounter
CPT/HCPCS: 36415; 71045; 71046; 71260; 80048; 80053; 81001; 83735; 83880; 84443; 84484; 85025; 85027; 87086; 87449; 93005; 93010; 94762; 96365; 96375; 96376; 99285-25; A9270; J0696; J1170; J3010; J7030; J7050; Q0177; Q9967

== ENCOUNTER 2021-10-21 15:02 | Inpatient (IN) | payer MEDICARE, BC ==
[~2021-10-21] VITALS: Ht 167.6 cm; Wt 89.2 kg
[~2021-10-21 15:02] MED LIST changes: +AZIT250 PO; +CEFD300 PO; +HYDPAM25 PO; +HYDR1TAB94 PO; +NARCAN4 M1; +ONDA4; +TRAM50 PO
[2021-10-21 16:38] LABS: BASOPHILS ABSOLUTE AUTO 0.04 K/mm3 (0.00-0.23); BASOPHILS PERCENT AUTO 0 % (0-2); EOSINOPHILS ABSOLUTE AUTO 0.06 K/mm3 (0.00-0.68); EOSINOPHILS PERCENT AUTO 1 % (0-6); Hematocrit 37.8 % (33.0-51.0); Hemoglobin 12.7 g/dL (11.5-16.0); IMMATURE GRAN ABSOLUTE AUTO 0.11 K/mm3 (0.00-0.10); IMMATURE GRAN PERCENT AUTO 1 % (0-1); LYMPHOCYTES ABSOLUTE AUTO 0.53 K/mm3 (0.84-5.20); LYMPHOCYTES PERCENT AUTO 5 % (21-46); MONOCYTES ABSOLUTE AUTO 1.54 K/mm3 (0.16-1.47); MONOCYTES PERCENT AUTO 14 % (4-13); Mean Corpuscular HGB 31.8 pg (26.0-34.0); Mean Corpuscular HGB Conc 33.6 g/dL (31.5-36.5); Mean Corpuscular Volume 95 fL (80-100); Mean Platelet Volume 8.3 fL (9.1-12.4); NEUTROPHILS ABSOLUTE AUTO 8.93 K/mm3 (1.96-9.15); NEUTROPHILS PERCENT AUTO 80 % (41-73); Platelet Count 374 K/mm3 (150-400); RDW Coefficient Variation 13.3 % (11.7-14.2); RDW Standard Deviation 46.6 fL (35.1-46.3); White Blood Cell Count 11.21 K/mm3 (4.00-11.30)
[2021-10-21 16:46] LABS: Alanine Aminotransfer (ALT/SGP 35 U/L (12-78); Albumin, Blood 2.8 g/dL (3.4-5.0); Albumin/Globulin Ratio 0.6 (0.8-1.8); Alk Phos 114 U/L (50-136); Anion Gap 10 mmol/L (6-16); Aspartate Aminotrans (AST/SGOT 32 U/L (12-37); Bilirubin, Total 0.8 mg/dL (0.1-1.0); Blood Urea Nitrogen 13 mg/dL (8-24); Bun/Creatinine Ratio 24.1 (12.0-20.0); CO2, Blood 22 mmol/L (21-32); Calcium, Blood 9.4 mg/dL (8.5-10.1); Chloride, Blood 95 mmol/L (98-108); Creatinine, Blood 0.54 mg/dL (0.40-1.00); Globulin, Blood 4.7 g/dL (2.2-4.0); Glomerular Filtration Rate >60 (60-); Glucose, Blood 133 mg/dL (70-99); Potassium, Blood 4.3 mmol/L (3.5-5.5); Sodium, Blood 127 mmol/L (136-145); Total Protein, Blood 7.5 g/dL (6.4-8.2); Troponin I <0.015 ng/mL (0.000-0.040)
[2021-10-21 20:48] LABS: Influenza A, PCR NEGATIVE (NEGATIVE); Influenza B, PCR NEGATIVE (NEGATIVE); Resp Syncytial Virus, PCR NEGATIVE (NEGATIVE); SARS-Cov-2 (COVID-19) PCR, MMC NEGATIVE (NEGATIVE)
[2021-10-22 00:20] LABS: CPK Creatine Kinase 41 U/L (26-193); Troponin I <0.015 ng/mL (0.000-0.040)
--- NOTE | 2021-10-22 04:37 | NUR ---
NIGHT SUMMARY/ ADMISSION PATIENT WAS BROUGHT FROM THE ED, AO, SHE IS ON OXYGEN @ 4L NC. SHE STATED SHE IS NOT IN PAIN SHE JUST GOT HER PAIN MED. SHE WAS LATER GIVEN SOME PAIN MED NEEDED, SEE EMAR SHE HAS PAIN ON HER RIGHT SIDE. SHE HAS FRACTURE ON THAT SIDE. ASSESSMENT DONE AND RECORDED. NO SKIN BREAKDOWN. SAFETY MEASURES IN PLACE. WILL CONTIUE TO MONITOR HER.
[2021-10-22 08:01] LABS: BASOPHILS ABSOLUTE AUTO 0.03 K/mm3 (0.00-0.23); BASOPHILS PERCENT AUTO 0 % (0-2); EOSINOPHILS ABSOLUTE AUTO 0.06 K/mm3 (0.00-0.68); EOSINOPHILS PERCENT AUTO 1 % (0-6); Hematocrit 38.6 % (33.0-51.0); Hemoglobin 12.9 g/dL (11.5-16.0); IMMATURE GRAN PERCENT AUTO 1 % (0-1); LYMPHOCYTES ABSOLUTE AUTO 0.65 K/mm3 (0.84-5.20); LYMPHOCYTES PERCENT AUTO 5 % (21-46); MONOCYTES ABSOLUTE AUTO 1.62 K/mm3 (0.16-1.47); MONOCYTES PERCENT AUTO 13 % (4-13); Mean Corpuscular HGB 31.3 pg (26.0-34.0); Mean Corpuscular HGB Conc 33.4 g/dL (31.5-36.5); Mean Corpuscular Volume 94 fL (80-100); Mean Platelet Volume 8.7 fL (9.1-12.4); NEUTROPHILS ABSOLUTE AUTO 9.75 K/mm3 (1.96-9.15); NEUTROPHILS PERCENT AUTO 80 % (41-73); Platelet Count 334 K/mm3 (150-400); RDW Coefficient Variation 13.2 % (11.7-14.2); RDW Standard Deviation 45.6 fL (35.1-46.3); Red Blood Cell Count 4.12 M/mm3 (3.80-5.20); White Blood Cell Count 12.21 K/mm3 (4.00-11.30)
[2021-10-22 08:43] LABS: Alanine Aminotransfer (ALT/SGP 34 U/L (12-78); Albumin, Blood 2.7 g/dL (3.4-5.0); Albumin/Globulin Ratio 0.6 (0.8-1.8); Alk Phos 110 U/L (50-136); Anion Gap 12 mmol/L (6-16); Aspartate Aminotrans (AST/SGOT 24 U/L (12-37); Bilirubin, Total 0.7 mg/dL (0.1-1.0); Blood Urea Nitrogen 12 mg/dL (8-24); Bun/Creatinine Ratio 24.8 (12.0-20.0); CO2, Blood 20 mmol/L (21-32); CPK Creatine Kinase 52 U/L (26-193); Calcium, Blood 9.4 mg/dL (8.5-10.1); Chloride, Blood 96 mmol/L (98-108); Creatinine, Blood 0.48 mg/dL (0.40-1.00); Globulin, Blood 4.9 g/dL (2.2-4.0); Glomerular Filtration Rate >60 (60-); Glucose, Blood 109 mg/dL (70-99); Sodium, Blood 128 mmol/L (136-145); Total Protein, Blood 7.6 g/dL (6.4-8.2); Troponin I <0.015 ng/mL (0.000-0.040)
--- NOTE | 2021-10-22 09:25 | NUR ---
Initial Assessment with [facility] Pillowcase Sewer 1. Who did you speak with? Spoke with patient and spouse (spouse was visiting) 2. What is the patient's prior level of functions? Independent lives with her and daughter 3. What is the patient's current living situation? Patient lives with her and daughter. Patient has a safe and stable home with running water, heat electricity, and sewage. No barriers at this time. 4. Is the patient and/or family able to provide transportation to and from doctor's appointments and citrus picker prescriptions? Yes, and daughter provide transportation. 5. Does patient still drive? No her and daughter provide transportation as needed 6. POA/PCP/NOK: PCP-Dr. Mariscal/ [facility] is NOK 7. Discharge goals: -Patient is returning to residence: TBD -DME: patient has a walker -Medication Management: assists with medication -Preferred Pharmacy: [facility] -Housekeeping need: and daughter helps with housekeeping needs -Able to cook for self: and daughter assists with cooking/meals 8. List barriers to discharge -SNF Placement: No -Memory Care: No -Transportation needs: No -Financial concerns: No -Drug/Alcohol treatment: No -Home Health: No -Hospice: No 9. Discharge Plan: TBD 10. PCP Follow up appointment: Will be scheduled within seven calendar days of discharge.
--- NOTE | 2021-10-22 15:31 | NUR ---
Echocardiogram completed.
--- NOTE | 2021-10-22 18:25 | NUR ---
Alert and oriented x2 , at bedside.Anxious , ativan 0.5 mg po was given , it was effective. Fentanyl 25 mcg was given for pain management , it was effective. Recieved an order for lasix 40 IV BID. Wheezing noted.On continue oxygen monitoring , sp02 at 94% or greater.On tele monitor , pacing at 106. Call light within . Continue to monitor.
--- NOTE | 2021-10-23 05:05 | NUR ---
COMPLIANCE AIDE SUMMARY PATIENT HAD A FAIR SHIFT, NO EVENTS OVERNIGHT. HAD PRN PAIN MED ONE TIME, SLEPT BETTER. WILL CONTINUE TO MONITOR HER.
--- NOTE | 2021-10-23 19:30 | NUR ---
Alert and oriented x2 with some confusion and anxiety. c/o right rib pain, fentayl 25 mcg was given and it was effective. Ativan 0.5 mg was given for anxiety with some relief. lasix was given for pleural effusion/chf. Continue on 4 L N/C , no SOB noted. Used IS as tolerated. Bed alarm and call light within . Continue to monitor.
--- NOTE | 2021-10-24 04:15 | NUR ---
SUMMARY PT HAS BEEN VOIDING WELL T/OUT SHIFT. PT HAS PERIODS OF INCREASED CONFUSION AND ANXIETY. PT ABLE TO RELAX AND SLEEP. PT TOLERATES CPAP FOR SHORT PERIODS ONLY. PT SATS MAINTAINED WELL W/ NC @ 4LPM. PT CURRENTLY SLEEPING IN NO DISTRESS. CALL LIGHT IN REACH.
[2021-10-24 05:13] LABS: BASOPHILS ABSOLUTE AUTO 0.05 K/mm3 (0.00-0.23); BASOPHILS PERCENT AUTO 1 % (0-2); EOSINOPHILS ABSOLUTE AUTO 0.15 K/mm3 (0.00-0.68); EOSINOPHILS PERCENT AUTO 2 % (0-6); IMMATURE GRAN ABSOLUTE AUTO 0.08 K/mm3 (0.00-0.10); IMMATURE GRAN PERCENT AUTO 1 % (0-1); LYMPHOCYTES ABSOLUTE AUTO 0.89 K/mm3 (0.84-5.20); LYMPHOCYTES PERCENT AUTO 10 % (21-46); MONOCYTES ABSOLUTE AUTO 1.51 K/mm3 (0.16-1.47); MONOCYTES PERCENT AUTO 16 % (4-13); Mean Corpuscular HGB 31.6 pg (26.0-34.0); Mean Corpuscular HGB Conc 33.3 g/dL (31.5-36.5); Mean Corpuscular Volume 95 fL (80-100); Mean Platelet Volume 8.5 fL (9.1-12.4); NEUTROPHILS ABSOLUTE AUTO 6.71 K/mm3 (1.96-9.15); NEUTROPHILS PERCENT AUTO 71 % (41-73); Platelet Count 350 K/mm3 (150-400); RDW Coefficient Variation 13.1 % (11.7-14.2); RDW Standard Deviation 45.6 fL (35.1-46.3); Red Blood Cell Count 4.11 M/mm3 (3.80-5.20); White Blood Cell Count 9.39 K/mm3 (4.00-11.30)
[2021-10-24 05:50] LABS: Anion Gap 9 mmol/L (6-16); Blood Urea Nitrogen 12 mg/dL (8-24); Bun/Creatinine Ratio 25.8 (12.0-20.0); CO2, Blood 28 mmol/L (21-32); Chloride, Blood 95 mmol/L (98-108); Creatinine, Blood 0.47 mg/dL (0.40-1.00); Glomerular Filtration Rate >60 (60-); Glucose, Blood 114 mg/dL (70-99); Potassium, Blood 3.7 mmol/L (3.5-5.5); Sodium, Blood 132 mmol/L (136-145)
--- NOTE | 2021-10-24 18:30 | NUR ---
Alert and oriented x3, c/o right rib , norco and toradol was given , it was effective. Continue on 4 L n/c , no sob noted. Tele monitor with a normal sinus except with activities. Ativan was given for anxiety , it was effective. vital signs are stable. Granddaughter came to visit. Continue to monitor.
--- NOTE | 2021-10-25 03:54 | NUR ---
SHIFT SUMMARY MAGDI IS A&O X3. IV ACCESS IN LEFT AC. HX OF ANXIETY, GRAND-DAUGHTER SYDNIE IS AT THE BEDSIDE THROUGH OUT THE NIGHT. . LUNG SOUNDS ARE CLEAR, USING OXYGEN 4LPM VIA NC. ONE PERSON SBA TO BSC. C/O PAIN TO RIGHT RIB, RECIEVED PRN NORCO. PT WAS NOT ABLE TO TOLERATE WEARING THE CPAP FOR SLEEP THIS EVENING. TELEMETRY MONITORED 95-96% SPO2, HEARTATE 87-LOW 100'S, PACED WITH PVC'S. PLAN IS TO D/C TO REHAB. ENCOURAGED TO USE ISO 5X/EVERY HOUR AND USE PUTTY FOR OT HAND EXERCISES. PT IS MOTIVATED TO GO HOME.
[2021-10-25 05:20] LABS: BASOPHILS ABSOLUTE AUTO 0.06 K/mm3 (0.00-0.23); BASOPHILS PERCENT AUTO 1 % (0-2); EOSINOPHILS ABSOLUTE AUTO 0.26 K/mm3 (0.00-0.68); EOSINOPHILS PERCENT AUTO 4 % (0-6); Hematocrit 38.4 % (33.0-51.0); Hemoglobin 12.9 g/dL (11.5-16.0); IMMATURE GRAN ABSOLUTE AUTO 0.05 K/mm3 (0.00-0.10); IMMATURE GRAN PERCENT AUTO 1 % (0-1); LYMPHOCYTES ABSOLUTE AUTO 1.31 K/mm3 (0.84-5.20); LYMPHOCYTES PERCENT AUTO 18 % (21-46); MONOCYTES ABSOLUTE AUTO 1.12 K/mm3 (0.16-1.47); MONOCYTES PERCENT AUTO 16 % (4-13); Mean Corpuscular HGB 31.3 pg (26.0-34.0); Mean Corpuscular HGB Conc 33.6 g/dL (31.5-36.5); Mean Corpuscular Volume 93 fL (80-100); Mean Platelet Volume 8.3 fL (9.1-12.4); NEUTROPHILS ABSOLUTE AUTO 4.44 K/mm3 (1.96-9.15); NEUTROPHILS PERCENT AUTO 61 % (41-73); Platelet Count 375 K/mm3 (150-400); RDW Standard Deviation 44.9 fL (35.1-46.3); Red Blood Cell Count 4.12 M/mm3 (3.80-5.20); White Blood Cell Count 7.24 K/mm3 (4.00-11.30)
[2021-10-25 06:28] LABS: Anion Gap 10 mmol/L (6-16); Blood Urea Nitrogen 16 mg/dL (8-24); Bun/Creatinine Ratio 29.4 (12.0-20.0); CO2, Blood 28 mmol/L (21-32); Chloride, Blood 95 mmol/L (98-108); Creatinine, Blood 0.54 mg/dL (0.40-1.00); Glomerular Filtration Rate >60 (60-); Glucose, Blood 106 mg/dL (70-99); Potassium, Blood 3.8 mmol/L (3.5-5.5); Sodium, Blood 133 mmol/L (136-145)
[2021-10-25] MEDS ORDERED: FURO40 PO (11:35)
[2021-10-25] MEDS ORDERED: Lisinopril2.5 MG PO (11:35)
[2021-10-25] MEDS ORDERED: DILT120 PO (11:36)
[2021-10-25] MEDS ORDERED: LORA.5 PO (14:39)
--- NOTE | 2021-10-25 15:45 | NUR ---
Per Dr. Forrest discharge appropriate for 10/25/21. Spoke with patient and her and they do not oppose discharge. Patient has transportation and returning home to their residence. Patient is still on service with [employer]. Contacted Summer from [employer] and gave discharge date. Patient has DME needs. M transition of care will contact patient to coordinate PCP follow up visit. Patient has a strong support network of family and friends. Patient does not have any barriers to discharge at this time.
--- NOTE | 2021-10-25 16:54 | NUR ---
Alert and oriented x3 , able to make needs known. c/o right rib pain 7/10 , norco 2 tabs was given and it was effective. One person assist with ADLS. Continue on tele monitor , afib at 110. Lasix was given for pleural effusion. Voided x3. Patient discharged in a stable condition and discharged instruction was acknowledged.
== END 2021-10-25 16:28 | disposition home health service (06) | DRG 291 ==
LOC: ER 15:02 → MEDS 19:11 → ERHOLD 19:11 → MEDS 23:25
PROVIDERS: Emergency Medicine; Internal Medicine; ADMIT Internal Medicine
DX: I11.0 Hypertensive heart disease with heart failure (principal); I50.21 Acute systolic (congestive) heart failure; J96.01 Acute respiratory failure with hypoxia; J98.11 Atelectasis; Z20.822 Contact with and (suspected) exposure to COVID-19; I48.91 Unspecified atrial fibrillation; B18.2 Chronic viral hepatitis C; I08.1 Rheumatic disorders of both mitral and tricuspid valves; M19.90 Unspecified osteoarthritis, unspecified site; M85.80 Other specified disorders of bone density and structure, unspecified site; M81.0 Age-related osteoporosis without current pathological fracture; E04.1 Nontoxic single thyroid nodule; F03.90 Unspecified dementia, unspecified severity, without behavioral disturbance, psychotic disturbance, mood disturbance, and anxiety; F41.9 Anxiety disorder, unspecified; G47.33 Obstructive sleep apnea (adult) (pediatric); E78.5 Hyperlipidemia, unspecified; S22.41XD Multiple fractures of ribs, right side, subsequent encounter for fracture with routine healing; Z95.0 Presence of cardiac pacemaker; Z86.73 Personal history of transient ischemic attack (TIA), and cerebral infarction without residual deficits; Z88.1 Allergy status to other antibiotic agents; Z88.5 Allergy status to narcotic agent; Z79.899 Other long term (current) drug therapy; Z79.01 Long term (current) use of anticoagulants; Z79.891 Long term (current) use of opiate analgesic
CPT/HCPCS: 0241U; 36415; 71045; 71046; 71260; 80048; 80053; 82550; 83880; 84484; 85025; 93005; 93010; 93306; 94640; 94660; 94664; 94761; 94762; 96374; 97110; 97129; 97162; 97166; 97535; 99285-25; A9270; J1650; J1885; J1940; J2060; J3010; Q9967

== ENCOUNTER → 2023-04-03 | Outpatient (CLI) | payer BC ==
[~2023-04-03] MED LIST changes: +DILT120 PO; +FURO40 PO; +LORA.5 PO; +Lisinopril2.5 MG PO
[2023-04-03 15:33] LABS: Source, Urine Voided
[2023-04-03 18:21] LABS: Bacteria Many /hpf; Red Blood Cells, Urine 0-2 /hpf (0-2); Squamous Epithelial Cells Rare /hpf (Few)
== END | disposition home or self-care (01) ==
LOC: LAB 15:24 → LAB SHORT 15:24
PROVIDERS: Family Medicine
DX: M54.50 Low back pain, unspecified (principal)
CPT/HCPCS: 81015; 87077; 87086; 87186